=== PATIENT | male | born 1965 | race Asian ===

== ENCOUNTER 2019-02-27 04:24 | Emergency (ER) | payer BC ==
[~2019-02-27] VITALS: Ht 170.2 cm; Wt 75.7 kg
[2019-02-27 04:28] VITALS: BP_SYST 129
[2019-02-27] MEDS ORDERED: METHOCARBAMOL 1000 MG/10 ML VIAL IM ONE (04:45)
[2019-02-27] MEDS ORDERED: METHOCARBAMOL 500 MG TABLET PO ONE (05:00)
[2019-02-27] MEDS ORDERED: KETOROLAC TROMETHAMINE 60 MG/2 ML VIAL IM ONE (07:15)
[2019-02-27 07:25] VITALS: BP_SYST 118
== END 2019-02-27 07:25 | disposition home or self-care (01) ==
LOC: SED 04:24
DX: S13.9XXA Sprain of joints and ligaments of unspecified parts of neck, initial encounter (principal); X50.0XXA Overexertion from strenuous movement or load, initial encounter; Y93.89 Activity, other specified; Y92.89 Other specified places as the place of occurrence of the external cause; Y99.8 Other external cause status
CPT/HCPCS: 72125; 96372; 99284; J1885